=== PATIENT | male | born 1965 | race African-American/Black ===

== ENCOUNTER 2021-01-06 22:25 | Observation (INO) ==
[2021-01-06] MEDS ORDERED: 0.9 % Sodium Chloride 1,000 ML IVC ONE (22:29)
[2021-01-06 22:48] LABS: Basophils % 0.3 %; Eosinophils % 0.3 %; Hematocrit 39.2 % (37.5-50.1); Hemoglobin 13.2 g/dL (12.9-16.9); Immature Granulocytes % 0.7 % (0-4); Lymphocytes # 1.4 K/mcL (0.6-4.6); Lymphocytes % 15.9 %; Mean Corpuscular HGB Conc 33.7 g/dL (31.6-35.5); Mean Corpuscular Hemoglobin 31.4 pg (28.0-33.3); Mean Corpuscular Volume 93.1 fL (83.0-100.0); Mean Platelet Volume 10.1 fL (9.4-12.4); Monocytes # 0.7 K/mcL (0.0-1.3); Monocytes % 7.9 %; Neutrophils # 6.4 K/mcL (1.6-8.9); Platelet Count 279 K/mcL (140-400); Red Blood Count 4.21 M/mcL (4.19-5.50); Red Cell Distribution Width 12.9 % (11.5-14.5); Segmented Neutrophils % 74.9 %; White Blood Count 8.6 K/mcL (4.3-11.1)
[2021-01-06 22:56] LABS: INR 1.1; Prothrombin Time 12.5 Seconds (9.4-12.1)
[2021-01-06 22:59] LABS: Activated Partial Thrombo Time 27.9 Seconds (26.0-36.0)
[2021-01-06 23:08] LABS: Alanine Aminotransferase 10 Units/L (7-52); Albumin 4.4 g/dL (3.5-5.7); Albumin/Globulin Ratio 1.8 (1.1-2.2); Alkaline Phosphatase 44 Units/L (34-104); Aspartate Amino Transferase 15 Units/L (13-39); BUN/Creatinine Ratio 7 (6-26); Bilirubin,Total 0.5 mg/dL (0.3-1.0); Blood Urea Nitrogen 16 mg/dL (6-20); Calcium 9.1 mg/dL (8.6-10.3); Carbon Dioxide 27 mEq/L (23-29); Chloride 99 mEq/L (98-107); Globulin 2.4 g/dL (2.4-3.5); Glucose 166 mg/dL (70-105); Osmolality,Calculated 285 (280-300); Potassium 3.8 mEq/L (3.5-5.1); Sodium 135 mEq/L (136-145); Total Protein 6.8 g/dL (6.4-8.9); Troponin I < 0.03 ng/mL (< 0.04); eGFR For African Americans 39 (> 60); eGFR For Non-African Americans 32 (> 60)
[2021-01-06] MEDS ORDERED: Naloxone 0.4 MG/ML INJ IVP PRN ×2 (23:58)
[2021-01-06] MEDS ORDERED: 0.9 % Sodium Chloride 1,000 ML IVC SCH (23:58)
[2021-01-07 02:47] LABS: Bilirubin,Urine Negative (Negative); Blood,Urine Negative (Negative); Clarity,Urine Clear (Clear); Color,Urine Yellow (Yellow); Glucose,Urine (UA) Normal (Normal); Ketones,Urine Negative (Negative); Leukocyte Esterase,Urine Negative (Negative); Nitrite,Urine Negative (Negative); Protein,Urine Negative (Neg-Trace); Specific Gravity,Urine 1.015 (1.010-1.025); Urobilinogen,Urine Normal (Normal)
[2021-01-07] MEDS ORDERED: Ipratropium/Albuterol Neb 3 ML IH PRN (05:23)
[2021-01-07 07:24] VITALS: BP 116/68
[2021-01-07 08:36] LABS: Basophils % 0.4 %; Eosinophils # 0.1 K/mcL (0.0-0.6); Eosinophils % 1.6 %; Hematocrit 39.3 % (37.5-50.1); Hemoglobin 13.1 g/dL (12.9-16.9); Immature Granulocytes % 0.3 % (0-4); Lymphocytes # 1.5 K/mcL (0.6-4.6); Lymphocytes % 18.9 %; Mean Corpuscular HGB Conc 33.3 g/dL (31.6-35.5); Mean Corpuscular Hemoglobin 31.3 pg (28.0-33.3); Mean Corpuscular Volume 93.8 fL (83.0-100.0); Mean Platelet Volume 10.3 fL (9.4-12.4); Monocytes # 0.9 K/mcL (0.0-1.3); Monocytes % 11.4 %; Neutrophils # 5.3 K/mcL (1.6-8.9); Platelet Count 253 K/mcL (140-400); Red Blood Count 4.19 M/mcL (4.19-5.50); Red Cell Distribution Width 12.9 % (11.5-14.5); Segmented Neutrophils % 67.4 %; White Blood Count 7.9 K/mcL (4.3-11.1)
[2021-01-07 08:45] LABS: BUN/Creatinine Ratio 11 (6-26); Blood Urea Nitrogen 14 mg/dL (6-20); Calcium 8.4 mg/dL (8.6-10.3); Carbon Dioxide 27 mEq/L (23-29); Chloride 106 mEq/L (98-107); Glucose 103 mg/dL (70-105); Osmolality,Calculated 289 (280-300); Potassium 3.8 mEq/L (3.5-5.1); Sodium 139 mEq/L (136-145); eGFR For African Americans > 60 (> 60); eGFR For Non-African Americans > 60 (> 60)
== END 2021-01-07 09:39 | disposition home or self-care (01) ==
LOC: EMEROOPIK 22:25 → INPPIK 22:25
PROVIDERS: ADMIT Student in an Organized Health Care Education/Training Program; ATTEND Student in an Organized Health Care Education/Training Program